=== PATIENT | male | born 1970 | race Caucasian/White ===

== ENCOUNTER 2020-02-02 05:55 | Day surgery (SDC) | payer BC ==
[2020-01-30 11:36] VITALS: BMI 29.1
[2020-02-02] MEDS ORDERED: Ketorolac Tromethamine 30 MG/ML VIAL ONE ×2 (06:23→09:15)
[2020-02-02] MEDS ORDERED: Acetaminophen 500 MG TAB ONE (06:23)
[2020-02-02] MEDS ORDERED: Lidocaine 1% w/Epinephrine 1:100K 20 ML VIAL ONE (06:45)
[2020-02-02] MEDS ORDERED: Bupivacaine PF 0.5% 30 ML VIAL ONE ×2 (06:45→08:37)
[2020-02-02] MEDS ORDERED: Fentanyl 100 MCG/2 ML VIAL ONE (07:21)
[2020-02-02] MEDS ORDERED: EPHEDRINE 25 MG/5 ML SYRINGE ONE (09:15)
[2020-02-02] MEDS ORDERED: Ondansetron PF 4 MG/2 ML Vial ONE (09:15)
[2020-02-02] MEDS ORDERED: Dexamethasone 20 MG/5 ML VIAL ONE (09:15)
[2020-02-02] MEDS ORDERED: PHENYLEPHRINE-NS 100 MCG/ML 10 ML SYRINGE ONE (09:15)
[2020-02-02] MEDS ORDERED: Lidocaine 1% PF 5 ML VIAL ONE (09:15)
[2020-02-02] MEDS ORDERED: PROPOFOL 200 MG/20 ML VIAL ONE (09:15)
[2020-02-02] MEDS ORDERED: Rocuronium Bromide 10 MG/ML (10ML VIAL) ONE (09:15)
[2020-02-02] MEDS ORDERED: Glycopyrrolate 0.2 MG/ML 5 ML SYRINGE ONE (09:15)
--- NOTE | 2020-02-09 15:22 | PDOC.OP ---
Operative Note - Operative Note Operative Note: DATE OF SERVICE: 02/02/2020 PREOPERATIVE DIAGNOSIS: Left inguinal hernia. POSTOPERATIVE DIAGNOSIS: Left direct inguinal hernia. PROCEDURE: Repair of left inguinal hernia. HISTORY: Patient with a symptomatic left inguinal hernia who desires operative repair. DESCRIPTION OF PROCEDURE: After informed consent was obtained and appropriate preoperative antibiotics were administered, the patient was taken to the operating room, placed in the supine position and general endotracheal anesthesia was administered. The inguinal area was prepped and draped in the standard sterile fashion and local anesthesia was infused to the skin and subcutaneous tissues overlying the inguinal canal. An oblique skin incision was made in the direction of the skin crease. Dissection was carried down to the external oblique aponeurosis which was carefully incised in the direction of its fibers through the enlarged external ring. The aponeurosis was mobilized off the underlying structures. The ilioinguinal nerve was clearly identified. This was coursing media to the course of the inguinal cord and was mobilized out of the operative field and carefully avoided for the remainder of the case. The inguinal cord was mobilized at the level of the pubic tubercle. The cremasteric muscles were divided and the cord contents and floor of the canal were carefully examined. No indirect hernia was identified but there was a large direct defect involving most of the floor of the inguinal canal. The cord structures were dissected free of the hernia sac and traced back to the internal ring where a normal peritoneal reflection was encountered. An extra large Perfix plug was then placed into the direct hernia defect and was tacked down to the internal oblique in a couple of locations. The patch was then secured to the pubic tubercle inferiorly, to the shelving edge of the inguinal ligament laterally, and secured at intervals to the internal oblique medially. A keyhole slit was created and placed around the inguinal cord contents and secured, and the ends secured to each other and to the underlying plug. The operative site was irrigated and hemostasis verified. Local anesthesia was infused into the muscles of the internal oblique medially. An On-Q pain pump was obtained and tunneled from the operative site to the skin exiting laterally. The tubing was primed and placed into the inguinal canal. The external oblique aponeurosis was then closed with 2-0 Vicryl suture, taking care not to pull up any of the underlying cord contents into the closure, and additional local anesthesia infused into the inguinal canal. The remainder of the local was infused into the subcutaneous tissues circumferentially and to the skin. Aleah's fascia was reapproximated with 3-0 Monocryl sutures and the skin was closed with 4-0 subcuticular Monocryl sutures. Dermabond dressings were placed and the On-Q pain pump tubing dressed with Tegaderm. The patient was extubated and taken to the recovery room in good condition. Estimated blood loss was minimal. There were no complications. SPECIMENS: None.
== END 2020-02-02 11:44 | disposition home or self-care (01) ==
LOC: SDC 05:55
PROVIDERS: ATTEND Surgery
PROC: 0YQ60ZZ Repair Left Inguinal Region, Open Approach (ICD-10-PCS; principal; 2020-02-02)
DX: K40.90 Unilateral inguinal hernia, without obstruction or gangrene, not specified as recurrent (principal)
CPT/HCPCS: C1781; J0690; J1100; J1885; J2405; J2704; J3010; S0020